=== PATIENT | female | born 1945 | race Caucasian/White ===

== ENCOUNTER → 2016-12-24 | Outpatient (CLI) | payer MEDICARE, MEDICAID ==
[2016-12-24 09:26] LABS: CHLORIDE,CL 104 mmol/L (98-110); SODIUM,NA 139 mmol/L (136-146)
== END ==
LOC: MW.CHRC 08:29
PROVIDERS: ATTEND Family Medicine
DX: I10 Essential (primary) hypertension (principal); E03.9 Hypothyroidism, unspecified; E78.00 Pure hypercholesterolemia, unspecified; E11.9 Type 2 diabetes mellitus without complications; Z23 Encounter for immunization
CPT/HCPCS: 36415; 80053; 80061; 82044; 83036; 84439; 84443; 90662; 99214; G0008

== ENCOUNTER → 2017-01-03 | Outpatient (CLI) | payer MEDICARE, MEDICAID ==
--- NOTE | 2017-01-08 16:19 | ECHO ---
The echocardiogram report can be seen in this patient's EMR in the Reports section. REGIS
== END | disposition home or self-care (01) ==
LOC: MW.US 13:34
PROVIDERS: ATTEND Family Medicine
DX: I38 Endocarditis, valve unspecified (principal); I36.1 Nonrheumatic tricuspid (valve) insufficiency; Z13.6 Encounter for screening for cardiovascular disorders
CPT/HCPCS: 93306

== ENCOUNTER → 2017-01-24 | Outpatient (CLI) | payer MEDICARE, MEDICAID | END | disposition home or self-care (01) | LOC: MW.MNT 11:00 | PROVIDERS: ATTEND Family Medicine | DX: E66.09 Other obesity due to excess calories (principal); Z68.37 Body mass index [BMI] 37.0-37.9, adult; E11.9 Type 2 diabetes mellitus without complications | CPT/HCPCS: 97802 ==

== ENCOUNTER 2017-08-26 09:35 | Day surgery (SDC) | payer MEDICARE, MEDICAID ==
[~2017-08-26 09:35] MED LIST: Lactated Ringers 1,000 ML IV SCH
--- NOTE | 2017-08-26 10:43 | PCM.PREANE ---
Preanesthetic Assessment - Anesthesia/Transfusion/Family Hx Anesthesia History: Prior Anesthesia Without Reaction Other Type of Anesthesia Reaction Comment: hx: some motion sickness, denies any known problem with anesthesia Family History of Anesthesia Reaction: No Transfusion History: No Prior Transfusion(s) - Review of Systems General: No Symptoms Pulmonary: No Symptoms Cardiovascular: No Symptoms Gastrointestinal: No Symptoms Neurological: No Symptoms Other: Reports: None - Physical Assessment NPO Status Date: 08/25/17 Height: 1.52 m Weight: 87.09 kg ASA Class: 2 Mental Status: Alert & Oriented x3 Airway Class: Mallampati = 2 Dentition: Reports: Normal Dentition, Missing Tooth/Teeth ROM/Head Extension: Full Lungs: Clear to Auscultation, Normal Respiratory Effort Cardiovascular: Regular Rate, Regular Rhythm - Lab Values: Laboratory Last Values POC Glucose 119 mg/dL (60-110) H 08/26/17 11:15 - Allergies Allergies/Adverse Reactions: Allergies Allergy/AdvReac Type Severity Reaction Status Date / Time Iodinated Contrast- Oral and Allergy Unknown Seizure Verified 08/21/17 16:39 IV Dye [Iodinated Contrast Media - IV Dye] Penicillins Allergy Swelling Verified 08/21/17 16:39 Sulfa (Sulfonamide Allergy Hives Verified 08/21/17 16:39 Antibiotics) Dust (environmental triggers) Allergy Cough Uncoded 09/12/14 12:05 - Anesthesia Plan Pre-Op Medication Ordered: None - Acknowledgements Anesthesia Type Planned: MAC Pt an Appropriate Candidate for the Planned Anesthesia: Yes Alternatives and Risks of Anesthesia Discussed w Pt/Guardian: Yes Pt/Guardian Understands and Agrees with Anesthesia Plan: Yes Additional Comments: PMH: DM2, gerd, fibromyalgia, thyroid replacement, anxiety, RA, normal stress test and TTE in the last few months. PreAnesthesia Questionnaire Other HEENT History: wears glasses Cardiovascular History: Reports: Heart Murmur, High Cholesterol Other Cardiovascular History: denies chest pain Gastrointestinal History: Reports: Colon Polyp, GERD, Other (See Below) Other Gastrointestinal History: sleeps with HOB elevated because of GERD, cannot sleep on left side- causes pain and coughing because of GERD, unsure if she has hiatal hernia Musculoskeletal History: Reports: Fracture, Fibromyalgia Neurological History: Reports: Other (See Below) Other Neuro History: sciatica Psychiatric History: Reports: Anxiety Endocrine/Metabolic History: Reports: Diabetes, Type II, Hypothyroidism, Obesity /BMI 30+ - Past Surgical History GI Surgical History: Reports: Appendectomy, Cholecystectomy, Colonoscopy, Hernia , Abdominal Other GI Surgeries/Procedures: incisional hernia repair - SUBSTANCE USE Smoking Status *Q: Former Smoker Days Per Week of Alcohol Use: 0 Number of Drinks Per Day: 0 Total Drinks Per Week: 0 Recreational Drug Use History: No - HOME MEDS Home Medications: Home Meds Ezetimibe [Zetia] 10 mg PO DAILY 04/15/14 [History] metFORMIN [Glucophage XR] 500 mg PO BIDM 04/15/14 [History] Levothyroxine [Synthroid] 1 tab PO ACBRK 06/03/14 [History] Furosemide [Lasix] 20 mg PO DAILY PRN 06/07/14 [History] Enalapril [Vasotec] 20 mg PO BRK 07/29/14 [History] Aspirin 81 mg PO DAILY 08/21/17 [History] Lidocaine 5% 1 dose TOP TID PRN 08/21/17 [History] - CURRENT (IN HOUSE) MEDS Current Meds: Current Medications Lactated Ringer's (Ringers, Lactated) 1,000 mls @ 125 mls/hr IV ASDIRECTED [facility] Last Admin: 08/26/17 10:20 Dose: 125 mls/hr
[2017-08-26] MEDS ORDERED: Propofol 200 MG/20 ML SDV ONE ×2 (10:53→12:25)
[2017-08-26] MEDS ORDERED: Lidocaine 2% 5 ML SDV ONE (10:53)
--- NOTE | 2017-08-26 12:57 | PCM.POSTAN ---
POST ANESTHESIA ASSESSMENT - MENTAL STATUS Mental Status: Alert, Oriented - RESPIRATORY Respiratory Status: Respiratory Rate WNL, Airway Patent, O2 Saturation Stable - CARDIOVASCULAR CV Status: Pulse Rate WNL, Blood Pressure Stable - GASTROINTESTINAL GI Status: No Symptoms - PAIN Pain Score: 0 - POST OP HYDRATION Hydration Status: Adequate & Stable
--- NOTE | 2017-08-26 13:09 | PCM.OPNOTE ---
- General Post-Op/Procedure Note Date of Surgery/Procedure: 08/26/17 Operative Procedure(s): colonoscopy Findings: see dict [id number] Pre Op Diagnosis: hx of polyp Post-Op Diagnosis: hemorrhoid Anesthesia Technique: Moderate Sedation Primary Surgeon: Bandar Carey Complications: None Condition: Good Free Text/Narrative:: Intake & Output 08/25/17 08/26/17 08/26/17 22:59 06:59 14:59 Intake Total 1000 Balance 1000
--- NOTE | 2017-08-26 13:42 | PCM48HPAN ---
Post Anesthesia Note - EVALUATION WITHIN 48HRS OF ANESTHETIC Vital Signs in Normal Range: Yes Patient Participated in Evaluation: Yes Respiratory Function Stable: Yes Airway Patent: Yes Cardiovascular Function Stable: Yes Hydration Status Stable: Yes Pain Control Satisfactory: Yes Nausea and Vomiting Control Satisfactory: Yes Mental Status Recovered: Yes
--- NOTE | 2017-08-26 18:43 | OR ---
SURGEON: Bandar Carey MD DATE OF PROCEDURE: 08/26/2017 PREOPERATIVE DIAGNOSIS: History of colon polyp. POSTOPERATIVE DIAGNOSIS: Hemorrhoids. PROCEDURE PERFORMED: Colonoscopy. PROCEDURE in details Colonoscopy: The patient was taken to the endoscopy room. A time out was called, patient identified, and procedure identified. Diprivan was then administrated. Patient went from awake to sleep, hearing doctor talking or door closing is normal. Perineum inspection and digital examination were then performed. A well-lubricated colonoscope was gently inserted through the rectum, advanced past the rectosigmoid junction, the descending colon, splenic flexure, transverse colon, hepatic flexure, ascending colon, arrived to the cecum. Cecum was identified as dictated in the finding. Then the scope was carefully withdrawn while attention was paid to the mucosal surface for any abnormality. Air will be sucked out during the scope withdrawal. At the rectum, retroflexed to examine any rectal diseases, fistula or hemorrhoids. Patient tolerated procedure well. There were no intraoperative complications, and Dr. Carey was present throughout the whole procedure. COMPLICATIONS: None. FINDINGS: 1. The patient is easily sedated with [employer] and Diprivan. The patient is soundly snoring. 2. The patient's colon was rather redundant at the sigmoid, requiring several maneuvers before getting to the cecum. 3. The patient's the bowel prep is average to good. Very little liquid stool. Sigmoid was rather redundant, and cecum was indicated by ileocecal fold and one-to-one indentation. Light immittance is not observed and appendiceal orifice is not observed and cecum can only be observed at a distant. Mucosa was examined. Upon scope pulling out, the patient does not have diverticulosis, polyp, mass, growth, inflammation, stricture, ulceration, bleeding, none of those. The patient has internal hemorrhoids and external hemorrhoids. The patient would benefit from repeat colonoscopy 10 years from today or if clinically indicated otherwise. Thank you for your kind referral. VANESA / DANA /[id number] REGIS
== END 2017-08-26 13:40 | disposition home or self-care (01) ==
LOC: MW.SDS 09:35
PROVIDERS: ATTEND Surgery
DX: Z12.11 Encounter for screening for malignant neoplasm of colon (principal); K64.8 Other hemorrhoids; K64.4 Residual hemorrhoidal skin tags; F32.9 Major depressive disorder, single episode, unspecified; K21.9 Gastro-esophageal reflux disease without esophagitis; Z91.09 Other allergy status, other than to drugs and biological substances; I10 Essential (primary) hypertension; E78.00 Pure hypercholesterolemia, unspecified; E03.9 Hypothyroidism, unspecified; E11.9 Type 2 diabetes mellitus without complications; Z86.010 Personal history of colon polyps; Z88.0 Allergy status to penicillin; Z88.2 Allergy status to sulfonamides; Z91.041 Radiographic dye allergy status; Z79.82 Long term (current) use of aspirin; Z79.899 Other long term (current) drug therapy; Z90.49 Acquired absence of other specified parts of digestive tract; Z98.890 Other specified postprocedural states; Z87.891 Personal history of nicotine dependence
CPT/HCPCS: 82962; G0105; J7120; 00810; J2704

== ENCOUNTER 2019-07-29 12:04 | Emergency (ER) | payer MEDICARE, MEDICAID ==
[2019-07-29] MEDS ORDERED: Sodium Chloride 0.9% 2.5 ML Syringe FLUSH PRN (12:06)
[2019-07-29] MEDS ORDERED: Sodium Chloride 0.9% 10 ML Syringe FLUSH PRN (12:06)
--- NOTE | 2019-07-29 12:23 | EDM.PDOC ---
ED HPI GENERAL MEDICAL PROBLEM - General Chief Complaint: Abdominal Pain Stated Complaint: LEFT ABD PAIN Time Seen by Provider: 07/29/19 12:15 Source of Information: Reports: Patient History Limitations: Reports: No Limitations - History of Present Illness INITIAL COMMENTS - FREE TEXT/NARRATIVE: HISTORY AND PHYSICAL: History of present illness: Patient is a 73-year-old female presents to the ED with complaint of left upper quadrant abdominal pain. She states the pain started 1 week ago and is not improving. She states she got her first it was a pulled muscle because it hurts worse with certain movements. She denies any nausea, vomiting, diarrhea, fevers , chills, chest pain or shortness of breath. His report a cough that she has had this for a while. She has history of gallstone pancreatitis with cholecystectomy 4 years ago. Past medical history significant for type 2 diabetes and hypertension. Past surgical history includes cholecystectomy, umbilical hernia repair with mesh. Review of systems: As per history of present illness and below otherwise all systems reviewed and negative. Past medical history: As per history of present illness and as reviewed below otherwise noncontributory. Surgical history: As per history of present illness and as reviewed below otherwise noncontributory. Social history: No reported history of drug or alcohol abuse. Family history: As per history of present illness and as reviewed below otherwise noncontributory. Physical exam: General: Patient sitting comfortably in no acute distress and nontoxic appearing HEENT: Atraumatic, normocephalic, pupils reactive, negative for conjunctival pallor or scleral icterus, mucous membranes moist, throat clear, neck supple, nontender, trachea midline. No meningeal signs. Lungs: Clear to auscultation, breath sounds equal bilaterally, chest nontender. Heart: S1S2, regular, negative for clicks, rubs, or overt murmur. Abdomen: Left lower and upper quadrant tenderness to palpation. Soft, nondistended. Negative for masses or hepatosplenomegaly. Negative for costovertebral tenderness. No rigidity, rebound, guarding. Pelvis: Stable nontender. Genitourinary: Deferred. Rectal: Deferred. Extremities: Atraumatic, negative for cords or calf pain. Neurovascular unremarkable. Neuro: Awake, alert, oriented. Cranial nerves II through XII unremarkable. Cerebellum unremarkable. Motor and sensory unremarkable throughout. Exam nonfocal. Notes: Diagnostics: CBC, CMP, lipase, troponin, EKG, chest x-ray, UA, CT abdomen/pelvis Therapeutics: 1 L normal saline IV Prescriptions: Impression: Abdominal pain Plan: Follow up with primary care provider Return to ED as needed as discussed Definitive disposition and diagnosis as appropriate pending reevaluation and review of above. LUQ Pain Score (Numeric/FACES): 7 - Related Data Allergies Allergy/AdvReac Type Severity Reaction Status Date / Time Iodinated Contrast Media Allergy Unknown Seizure Verified 07/29/19 12:09 [Iodinated Contrast Media - IV Dye] Penicillins Allergy Swelling Verified 07/29/19 12:09 Sulfa (Sulfonamide Allergy Hives Verified 07/29/19 12:09 Antibiotics) Dust (environmental triggers) Allergy Cough Uncoded 09/12/14 12:05 Home Meds: Home Meds Ezetimibe [Zetia] 10 mg PO DAILY 04/15/14 [History] metFORMIN [Glucophage XR] 500 mg PO BIDM 04/15/14 [History] Levothyroxine [Synthroid] 1 tab PO ACBRK 06/03/14 [History] Furosemide [Lasix] 20 mg PO DAILY PRN 06/07/14 [History] Enalapril [Vasotec] 20 mg PO BRK 07/29/14 [History] Aspirin 81 mg PO DAILY 08/21/17 [History] Past Medical History Other HEENT History: wears glasses Cardiovascular History: Reports: Heart Murmur, High Cholesterol Other Cardiovascular History: denies chest pain Gastrointestinal History: Reports: Colon Polyp, GERD, Other (See Below) Other Gastrointestinal History: sleeps with HOB elevated because of GERD, cannot sleep on left side- causes pain and coughing because of GERD, unsure if she has hiatal hernia Musculoskeletal History: Reports: Fracture, Fibromyalgia Neurological History: Reports: Other (See Below) Other Neuro History: sciatica Psychiatric History: Reports: Anxiety Endocrine/Metabolic History: Reports: Diabetes, Type II, Hypothyroidism, Obesity /BMI 30+ - Past Surgical History GI Surgical History: Reports: Appendectomy, Cholecystectomy, Colonoscopy, Hernia , Abdominal Other GI Surgeries/Procedures: incisional hernia repair ED ROS GENERAL - Review of Systems Review Of Systems: ROS reveals no pertinent complaints other than HPI. ED EXAM, GI/ABD - Physical Exam Exam: See Below (See dictation) Course - Vital Signs Last Recorded V/S: Last Vital Signs Temp 97.3 F 10/10/19 12:11 Pulse 77 07/29/19 12:11 Resp 18 07/29/19 12:11 BP 153/73 H 07/29/19 13:40 Pulse Ox 97 07/29/19 12:11 - Orders/Labs/Meds Orders: Active Orders 24 hr Category Date Time Status EKG Documentation Completion [RC] STAT Care 07/29/19 12:06 Active CULTURE URINE [RM] Stat Lab 07/29/19 13:38 Received Sodium Chloride 0.9% [Saline Flush] Med 07/29/19 12:06 Active 10 ml FLUSH ASDIRECTED PRN Sodium Chloride 0.9% [Saline Flush] Med 07/29/19 12:06 Active 2.5 ml FLUSH ASDIRECTED PRN Saline Lock Insert [OM.PC] Stat Oth 07/29/19 12:06 Ordered Medication Orders Sodium Chloride (Saline Flush) 10 ml FLUSH ASDIRECTED PRN PRN Reason: Keep Vein Open Sodium Chloride (Saline Flush) 2.5 ml FLUSH ASDIRECTED PRN PRN Reason: Keep Vein Open Labs: Laboratory Tests 07/29/19 07/29/19 07/29/19 Range/Units 12:31 12:31 12:31 WBC 8.98 (4.0-11.0) K/uL RBC 4.26 L (4.30-5.90) M/uL Hgb 13.8 (12.0-16.0) g/dL Hct 40.4 (36.0-46.0) % MCV 94.8 (80.0-98.0) fL MCH 32.4 H (27.0-32.0) pg MCHC 34.2 (31.0-37.0) g/dL RDW Std Deviation 42.9 (28.0-62.0) fl RDW Coeff of Izzy 13 (11.0-15.0) % Plt Count 210 (150-400) K/uL MPV 11.50 (7.40-12.00) fL Neut % (Auto) 71.6 (48.0-80.0) % Lymph % (Auto) 19.4 (16.0-40.0) % Union % (Auto) 6.1 (0.0-15.0) % Eos % (Auto) 2.3 (0.0-7.0) % Baso % (Auto) 0.6 (0.0-1.5) % Neut # (Auto) 6.4 H (1.4-5.7) K/uL Lymph # (Auto) 1.7 (0.6-2.4) K/uL Union # (Auto) 0.6 (0.0-0.8) K/uL Eos # (Auto) 0.2 (0.0-0.7) K/uL Baso # (Auto) 0.1 (0.0-0.1) K/uL Nucleated RBC % 0.0 /100WBC Nucleated RBCs # 0 K/uL Sodium 140 (136-145) mmol/L Potassium 4.0 (3.5-5.1) mmol/L Chloride 103 (98-107) mmol/L Carbon Dioxide 25.9 (21.0-32.0) mmol/L BUN 26 H (7.0-18.0) mg/dL Creatinine 1.1 H (0.6-1.0) mg/dL Est Cr Clr Drug Dosing 32.72 mL/min Estimated GFR (MDRD) 48.7 ml/min Glucose 135 H (74-106) mg/dL Calcium 9.5 (8.5-10.1) mg/dL Total Bilirubin 0.3 (0.2-1.0) mg/dL AST 27 (15-37) IU/L ALT 42 (14-63) IU/L Alkaline Phosphatase 81 (46-116) U/L Troponin I < 0.050 (0.000-0.056) ng/mL Total Protein 7.1 (6.4-8.2) g/dL Albumin 4.1 (3.4-5.0) g/dL Globulin 3.0 (2.6-4.0) g/dL Albumin/Globulin Ratio 1.4 (0.9-1.6) Lipase 151 (73-393) U/L Urine Color Urine Appearance Urine pH (5.0-8.0) Ur Specific [place] (1.001-1.035) Urine Protein (NEGATIVE) mg/dL Urine Glucose (UA) (NEGATIVE) mg/dL Urine Ketones (NEGATIVE) mg/dL Urine Occult Blood (NEGATIVE) Urine Nitrite (NEGATIVE) Urine Bilirubin (NEGATIVE) Urine Urobilinogen (<2.0) EU/dL Ur Leukocyte Esterase (NEGATIVE) Urine RBC (0-2/HPF) Urine WBC (0-5/HPF) Ur Epithelial Cells (NONE-FEW) Urine Bacteria (NEGATIVE) 07/29/19 Range/Units 13:38 WBC (4.0-11.0) K/uL RBC (4.30-5.90) M/uL Hgb (12.0-16.0) g/dL Hct (36.0-46.0) % MCV (80.0-98.0) fL MCH (27.0-32.0) pg MCHC (31.0-37.0) g/dL RDW Std Deviation (28.0-62.0) fl RDW Coeff of Izzy (11.0-15.0) % Plt Count (150-400) K/uL MPV (7.40-12.00) fL Neut % (Auto) (48.0-80.0) % Lymph % (Auto) (16.0-40.0) % Union % (Auto) (0.0-15.0) % Eos % (Auto) (0.0-7.0) % Baso % (Auto) (0.0-1.5) % Neut # (Auto) (1.4-5.7) K/uL Lymph # (Auto) (0.6-2.4) K/uL Union # (Auto) (0.0-0.8) K/uL Eos # (Auto) (0.0-0.7) K/uL Baso # (Auto) (0.0-0.1) K/uL Nucleated RBC % /100WBC Nucleated RBCs # K/uL Sodium (136-145) mmol/L Potassium (3.5-5.1) mmol/L Chloride (98-107) mmol/L Carbon Dioxide (21.0-32.0) mmol/L BUN (7.0-18.0) mg/dL Creatinine (0.6-1.0) mg/dL Est Cr Clr Drug Dosing mL/min Estimated GFR (MDRD) ml/min Glucose (74-106) mg/dL Calcium (8.5-10.1) mg/dL Total Bilirubin (0.2-1.0) mg/dL AST (15-37) IU/L ALT (14-63) IU/L Alkaline Phosphatase (46-116) U/L Troponin I (0.000-0.056) ng/mL Total Protein (6.4-8.2) g/dL Albumin (3.4-5.0) g/dL Globulin (2.6-4.0) g/dL Albumin/Globulin Ratio (0.9-1.6) Lipase (73-393) U/L Urine Color YELLOW Urine Appearance CLEAR Urine pH 5.5 (5.0-8.0) Ur Specific [place] 1.010 (1.001-1.035) Urine Protein NEGATIVE (NEGATIVE) mg/dL Urine Glucose (UA) NEGATIVE (NEGATIVE) mg/dL Urine Ketones NEGATIVE (NEGATIVE) mg/dL Urine Occult Blood NEGATIVE (NEGATIVE) Urine Nitrite NEGATIVE (NEGATIVE) Urine Bilirubin NEGATIVE (NEGATIVE) Urine Urobilinogen 0.2 (<2.0) EU/dL Ur Leukocyte Esterase TRACE H (NEGATIVE) Urine RBC 0-2 (0-2/HPF) Urine WBC 0-3 (0-5/HPF) Ur Epithelial Cells OCCASIONAL (NONE-FEW) Urine Bacteria RARE (NEGATIVE) Meds: Medications Generic Name Dose Route Start Last Admin Trade Name Freq PRN Reason Stop Dose Admin Sodium Chloride 10 ml 07/29/19 12:06 Saline Flush FLUSH ASDIRECTED PRN Keep Vein Open Sodium Chloride 2.5 ml 07/29/19 12:06 Saline Flush FLUSH ASDIRECTED PRN Keep Vein Open Discontinued Medications Generic Name Dose Route Start Last Admin Trade Name Freq PRN Reason Stop Dose Admin Sodium Chloride 1,000 mls @ 999 mls/hr 07/29/19 12:26 07/29/19 12:50 Normal Saline IV 07/29/19 13:26 999 mls/hr STAT ONE Administration Departure - Departure Time of Disposition: 14:48 Disposition: Home, Self-Care 01 Condition: Good Clinical Impression: Abdominal pain - Discharge Information Referrals: Lit Enciso MD [Primary Care Provider] - Forms: ED Department Discharge Additional Instructions: The following information is given to patients seen in the emergency department who are being discharged to home. This information is to outline your options for follow-up care. We provide all patients seen in our emergency department with a follow-up referral. The need for follow-up, as well as the timing and circumstances, are variable depending upon the specifics of your emergency department visit. If you don't have a primary care physician on staff, we will provide you with a referral. We always advise you to contact your personal physician following an emergency department visit to inform them of the circumstance of the visit and for follow-up with them and/or the need for any referrals to a consulting specialist. The emergency department will also refer you to a specialist when appropriate. This referral assures that you have the opportunity for follow-up care with a specialist. All of these measure are taken in an effort to provide you with optimal care, which includes your follow-up. Under all circumstances we always encourage you to contact your private physician who remains a resource for coordinating your care. When calling for follow-up care, please make the office aware that this follow-up is from your recent emergency room visit. If for any reason you are refused follow-up, please contact the [facility] Emergency Department at and asked to speak to the emergency department charge nurse. [facility] Primary Care [address] [place] [id number] [place] [address] Follow up with primary care provider Return to ED as needed as discussed - My Orders Last 24 Hours: My Active Orders 07/29/19 12:06 EKG Documentation Completion [RC] STAT Sodium Chloride 0.9% [Saline Flush] 10 ml FLUSH ASDIRECTED PRN Sodium Chloride 0.9% [Saline Flush] 2.5 ml FLUSH ASDIRECTED PRN Saline Lock Insert [OM.PC] Stat 07/29/19 13:38 CULTURE URINE [RM] Stat - Assessment/Plan Last 24 Hours: My Active Orders 07/29/19 12:06 EKG Documentation Completion [RC] STAT Sodium Chloride 0.9% [Saline Flush] 10 ml FLUSH ASDIRECTED PRN Sodium Chloride 0.9% [Saline Flush] 2.5 ml FLUSH ASDIRECTED PRN Saline Lock Insert [OM.PC] Stat 07/29/19 13:38 CULTURE URINE [RM] Stat
[2019-07-29] MEDS ORDERED: Sodium Chloride 0.9% 1,000 ML IV ONE (12:26)
[2019-07-29 13:15] LABS: CARBON DIOXIDE,CO2 25.9 mmol/L (21.0-32.0)
--- NOTE | 2019-07-29 13:15 | CR ---
Chest: Portable view of the chest was obtained. Comparison: Prior chest x-ray of 11/18/17. Heart size and mediastinum are normal. Lungs are clear. Bony structures are grossly intact. Impression: Nothing acute is seen on portable chest x-ray. Diagnostic code #1 MTDD
--- NOTE | 2019-07-29 14:16 | CT ---
CT abdomen and pelvis Technique: Multiple axial sections were obtained from above the dome of the diaphragm inferiorly through the pubic symphysis. Intravenous and oral contrast not utilized. Comparison: No prior CT abdomen or pelvis studies available. Findings: Visualized portions of the lung bases show nothing acute. Noncontrast appearance of the liver and spleen appears within normal limits. Surgical clips are seen from prior cholecystectomy. Adrenal gland on the left side is prominent in size. Right adrenal gland appears normal in size. Pancreas is within normal limits. Aorta shows atherosclerotic calcification which continues into the iliac vessels. No aneurysm is seen. Kidneys show no abnormal calcifications. No ureteral dilatation or ureteral calculi are seen. Aorta shows atherosclerotic change without aneurysm. No retroperitoneal adenopathy or mesenteric abnormalities are seen. Small fat-containing umbilical hernia is noted. No pelvic mass or adenopathy is identified. No free fluid or inflammatory change is seen. Appendix not definitely visualized. Mild increased stool is noted within the right colon and transverse colon. Bone window settings were reviewed which shows disc space narrowing and vacuum phenomena at L5-S1. There is evidence of annular rupture with a small amount of epidural air posterior to the disc at this level. Lesser degenerative change is scattered within other portions of the spine. Impression: 1. Multiple nonacute findings as noted above. Nothing is identified on noncontrast CT study of the abdomen and pelvis to explain the patient's acute abdominal symptoms. 2. Slightly prominent left adrenal gland. This is likely incidental unless patient has known neoplasm. Diagnostic code #3 MTDD
== END 2019-07-29 15:16 | disposition home or self-care (01) ==
LOC: MW.ED 12:04
DX: R10.12 Left upper quadrant pain (principal); E78.00 Pure hypercholesterolemia, unspecified; E11.9 Type 2 diabetes mellitus without complications; E03.9 Hypothyroidism, unspecified; E66.9 Obesity, unspecified; Z68.38 Body mass index [BMI] 38.0-38.9, adult; Z90.49 Acquired absence of other specified parts of digestive tract; Z88.0 Allergy status to penicillin; Z88.2 Allergy status to sulfonamides; Z91.041 Radiographic dye allergy status; Z91.048 Other nonmedicinal substance allergy status; Z79.82 Long term (current) use of aspirin; Z79.84 Long term (current) use of oral hypoglycemic drugs; Z79.899 Other long term (current) drug therapy
CPT/HCPCS: 36415; 71045; 74176; 80053; 81001; 83690; 84484; 85025; 87086; 93005; 96360; 99284; J7040

== ENCOUNTER 2019-10-01 06:33 | Day surgery (SDC) | payer MEDICARE, MEDICAID ==
[2019-10-01] MEDS ORDERED: Lidocaine 2% 5 ML SDV ONE (07:10)
[2019-10-01] MEDS ORDERED: Glycopyrrolate 0.2 MG/ML SDV ONE (07:10)
[2019-10-01] MEDS ORDERED: Propofol 200 MG/20 ML SDV ONE ×2 (07:11)
[2019-10-01] MEDS ORDERED: Midazolam 1 MG/ML 2 ML SDV ONE (07:12)
--- NOTE | 2019-10-01 07:26 | PCM.PREANE ---
Preanesthetic Assessment - Anesthesia/Transfusion/Family Hx Anesthesia History: Prior Anesthesia Without Reaction Other Type of Anesthesia Reaction Comment: hx: some motion sickness, denies any known problem with anesthesia Family History of Anesthesia Reaction: No Transfusion History: No Prior Transfusion(s) - Physical Assessment NPO Status Date: 09/30/19 Height: 5 ft Weight: 89.358 kg ASA Class: 2 Mental Status: Alert & Oriented x3 Airway Class: Mallampati = 2 ROM/Head Extension: Full Lungs: Clear to Auscultation, Normal Respiratory Effort Cardiovascular: Regular Rate, Regular Rhythm - Allergies Allergies/Adverse Reactions: Allergies Allergy/AdvReac Type Severity Reaction Status Date / Time Iodinated Contrast Media Allergy Unknown Seizure Verified 09/27/19 15:14 [Iodinated Contrast Media - IV Dye] Corticosteroids Allergy Headache Verified 09/27/19 15:16 (Glucocorticoids) duloxetine [From Cymbalta] Allergy Fatigue Verified 09/27/19 15:14 Penicillins Allergy Swelling/hi Verified 09/27/19 15:18 ves pregabalin [From Lyrica] Allergy Swelling Verified 09/27/19 15:14 Sulfa (Sulfonamide Allergy Hives Verified 09/27/19 15:14 Antibiotics) tramadol Allergy Abdominal Verified 09/27/19 15:14 Pain Dust (environmental triggers) Allergy Cough Uncoded 09/27/19 15:14 - Blood Blood Available: No - Anesthesia Plan Pre-Op Medication Ordered: None - Acknowledgements Anesthesia Type Planned: General Anesthesia Pt an Appropriate Candidate for the Planned Anesthesia: Yes Alternatives and Risks of Anesthesia Discussed w Pt/Guardian: Yes Pt/Guardian Understands and Agrees with Anesthesia Plan: Yes Additional Comments: PMH: thyroid replacement, anxiety, obesity, chr pain- fibro, dm2- am sugar 130, htn, gerd, RA? on no meds. hx of rheumatic fever- has systolic murmur but normal echo 2 years ago, peripheral neuropathy, cervical and lumbar spine disease PLAN: tiva PreAnesthesia Questionnaire HEENT History: Reports: Other (See Below) Other HEENT History: wears glasses Cardiovascular History: Reports: High Cholesterol, Hypertension Respiratory History: Reports: Bronchitis, Recurrent, Other (See Below) Other Respiratory History: undiagnosed sleep apnea Gastrointestinal History: Reports: Colon Polyp, GERD, Other (See Below) Other Gastrointestinal History: sleeps with HOB elevated because of GERD, cannot sleep on left side- causes pain and coughing because of GERD, unsure if she has hiatal hernia Genitourinary History: Reports: UTI, Recurrent M[employer] EMB[employer]ING [employer] OPERATOR History: Reports: None Musculoskeletal History: Reports: Arthritis, Fibromyalgia, RA Neurological History: Reports: Neuropathy, Peripheral, Other (See Below) Other Neuro History: sciatica Psychiatric History: Reports: Anxiety, Depression, OCD, PTSD Endocrine/Metabolic History: Reports: Diabetes, Type II, Hypothyroidism, Obesity /BMI 30+ Hematologic History: Reports: None Immunologic History: Reports: None Oncologic (Cancer) History: Reports: None Dermatologic History: Reports: None - Infectious Disease History Infectious Disease History: Reports: Chicken Pox, Mumps - Past Surgical History Head Surgeries/Procedures: Reports: None HEENT Surgical History: Reports: None Cardiovascular Surgical History: Reports: None Respiratory Surgical History: Reports: None GI Surgical History: Reports: Appendectomy, Cholecystectomy, Colonoscopy, Hernia , Abdominal Other GI Surgeries/Procedures: incisional hernia repair Female Surgical History: Reports: None Endocrine Surgical History: Reports: None Neurological Surgical History: Reports: None Musculoskeletal Surgical History: Reports: None Oncologic Surgical History: Reports: None Dermatological Surgical History: Reports: None - SUBSTANCE USE Smoking Status *Q: Former Smoker Tobacco Use Within Last Twelve Months: No Recreational Drug Use History: No - HOME MEDS Home Medications: Home Meds Ezetimibe [Zetia] 10 mg PO DAILY 04/15/14 [History] metFORMIN [Glucophage XR] 500 mg PO BIDM 04/15/14 [History] Levothyroxine [Synthroid] 88 mcg PO ACBRK 06/03/14 [History] Furosemide [Lasix] 20 mg PO DAILY PRN 06/07/14 [History] Enalapril [Vasotec] 20 mg PO BRK 07/29/14 [History] Aspirin 81 mg PO DAILY 08/21/17 [History] Acetaminophen with Codeine [Acetaminophen-Cod #3] 1 - 2 tab PO ASDIRECTED PRN [History] Calcium Carbonate [Calcium] 600 mg PO DAILY 09/27/19 [History] Cholecalciferol (Vitamin D3) [Vitamin D3] 5,000 units PO DAILY 09/27/19 [History ] Diclofenac Sodium [Voltaren 1% Gel] 1 applic TOP ASDIRECTED PRN 09/27/19 [ History] Multivitamin [Multivitamins] 1 tab PO DAILY 09/27/19 [History] - CURRENT (IN HOUSE) MEDS Current Meds: Current Medications Lactated Ringer's (Ringers, Lactated) 1,000 mls @ 125 mls/hr IV ASDIRECTED ОЛЕГ Last Admin: 10/01/19 07:21 Dose: 125 mls/hr Discontinued Medications Glycopyrrolate (Robinul) Confirm Administered Dose 0.2 mg .ROUTE .STK-MED ONE Stop: 10/01/19 07:11 Lidocaine (Xylocaine-Mpf 2%) Confirm Administered Dose 5 ml .ROUTE .STK-MED ONE Stop: 10/01/19 07:11 Midazolam HCl (Versed 1 Mg/Ml) Confirm Administered Dose 2 mg .ROUTE .STK-MED ONE Stop: 10/01/19 07:13 Propofol (Diprivan 20 Ml) Confirm Administered Dose 200 mg .ROUTE .STK-MED ONE Stop: 10/01/19 07:12 Propofol (Diprivan 20 Ml) Confirm Administered Dose 200 mg .ROUTE .STK-MED ONE Stop: 10/01/19 07:12
--- NOTE | 2019-10-01 08:38 | PCM.OPNOTE ---
- General Post-Op/Procedure Note Date of Surgery/Procedure: 10/01/19 Operative Procedure(s): egd w bx. colonoscopy w bx Findings: see [id number] Pre Op Diagnosis: change in bowel habits, gerd Post-Op Diagnosis: Same Anesthesia Technique: Moderate Sedation Primary Surgeon: Bandar Carey Pathology: sent Complications: None Condition: Good
--- NOTE | 2019-10-01 08:47 | PCM.POSTAN ---
POST ANESTHESIA ASSESSMENT - MENTAL STATUS Mental Status: Alert, Oriented - VITAL SIGNS Vital Signs: Last Vital Signs Temp 98.2 F 10/01/19 06:45 Pulse 78 10/01/19 08:40 Resp 13 10/01/19 08:40 BP 144/91 H 10/01/19 08:40 Pulse Ox 98 10/01/19 08:40 - RESPIRATORY Respiratory Status: Respiratory Rate WNL, Airway Patent, O2 Saturation Stable - CARDIOVASCULAR CV Status: Pulse Rate WNL, Blood Pressure Stable - GASTROINTESTINAL GI Status: No Symptoms - POST OP HYDRATION Hydration Status: Adequate & Stable
--- NOTE | 2019-10-01 08:48 | PCM48HPAN ---
Post Anesthesia Note - EVALUATION WITHIN 48HRS OF ANESTHETIC Vital Signs in Normal Range: Yes Patient Participated in Evaluation: Yes Respiratory Function Stable: Yes Airway Patent: Yes Cardiovascular Function Stable: Yes Hydration Status Stable: Yes Pain Control Satisfactory: Yes Nausea and Vomiting Control Satisfactory: Yes Mental Status Recovered: Yes Vital Signs: Last Vital Signs Temp 98.2 F 10/01/19 06:45 Pulse 78 10/01/19 08:40 Resp 13 10/01/19 08:40 BP 144/91 H 10/01/19 08:40 Pulse Ox 98 10/01/19 08:40
--- NOTE | 2019-10-01 09:40 | OR ---
SURGEON: Bandar Carey MD DATE OF PROCEDURE: 10/01/2019 PREOPERATIVE DIAGNOSES: Abdominal pain and gastroesophageal reflux disease symptom and change in bowel habit. POSTOPERATIVE DIAGNOSES: Esophagogastroduodenoscopy finding is gastroesophageal reflux disease and colonoscopy finding is colon polyp. PROCEDURES PERFORMED: Esophagogastroduodenoscopy with biopsy and colonoscopy with biopsy. DESCRIPTION OF PROCEDURE: EGD: The patient was taken to the endoscopy room, and with the T[employer] I TEACHER, Diprivan was administered. A well-lubricated EGD scope was gently inserted through the oropharynx, down the esophagus, passing through the gastroesophageal junction, into the stomach. The mucosa was examined upon the passage. Any etiology will be noted. Once in the stomach, we continued to advance to the distal antrum, passed through the pylorus into the second portion of the duodenum. Again, the mucosa was examined for any abnormality and etiology. The scope was then retrieved back to the stomach and then retroflexed to look at the fundus of the stomach. If a biopsy was indicated, we will biopsy the antrum, body, and gastroesophageal junction. The air will be sucked out while the scope is retrieved to reduce the patient's discomfort. The patient tolerated the procedure well. There were no intraoperative complications. Dr. Carey was present through the whole procedure. Prior to surgery, a time-out had been called, the patient identified, procedure identified and antibiotic administered. The patient was taken to the endoscopy room. A time out was called, patient identified, and procedure identified. Diprivan was then administrated. Patient went from awake to sleep, hearing doctor talking or door closing is normal. Perineum inspection and digital examination were then performed. A well- lubricated colonoscope was gently inserted through the rectum, advanced past the rectosigmoid junction, the descending colon, splenic flexure, transverse colon, hepatic flexure, ascending colon, arrived to the cecum. Cecum was identified as dictated in the finding. Then the scope was carefully withdrawn while attention was paid to the mucosal surface for any abnormality. Air will be sucked out during the scope withdrawal. At the rectum, retroflexed to examine any rectal diseases, fistula or hemorrhoids. During mucosal examination, abnormality or polyp was noted; picture taken and biopsy performed. Patient tolerated procedure well. There were no intraoperative complications, and Dr. Carey was present throughout the whole procedure. FINDINGS: EGD findings: 1. The patient is easily sedated with T[employer] I TEACHER and Diprivan, the patient is soundly snoring. 2. Oropharynx and proximal esophagus are free of disease. GE junction at 40 shows very mild salmon-colored change, suggests very mild acid reflux. Stomach rugae are a little bit flattened, consistent with chronic acid over production. Antrum is normal in appearance. Duodenum is grossly normal. Retrieved back to look at the fundus of stomach, there is no hiatal hernia. Biopsy done at body, antrum, and GE junction at 40 and sucked out the gas while scope pulling out. During the whole study, there is no ulcer, blood, bile, or food particle observed. Colonoscopy findings: 1. The patient is easily sedated with T[employer] TEACHER and Diprivan, the patient is soundly snoring. 2. Bowel prep is average to above average, very little liquid stool, no semi- formed stool. 3. Colon is rather straightforward. Cecum indicated by ileocecal fold, one-to- one indentation, appendiceal orifice. Light emittance is not observed. ScopeGuide is pointing south. Mucosa examined upon scope pulling out with some irrigation. The patient has a very small, 2 mm sessile polyp at distance 110 at the cecum, was removed with cold biopsy forceps. Other than that, the patient does not have diverticulosis, inflammation, stricture, ulceration, AV malformation, mass, growth, none of those. The patient has mild external hemorrhoids, mild internal hemorrhoids, and the patient would benefit from a repeat colonoscopy on an as-needed basis or if the clinical situation change. VANESA / DANA /[id number] REGIS
== END 2019-10-01 10:00 | disposition home or self-care (01) ==
LOC: MW.SDS 06:33
PROVIDERS: ATTEND Surgery
DX: D12.0 Benign neoplasm of cecum (principal); K21.0 Gastro-esophageal reflux disease with esophagitis; K29.50 Unspecified chronic gastritis without bleeding; K64.4 Residual hemorrhoidal skin tags; K64.8 Other hemorrhoids; I10 Essential (primary) hypertension; E78.00 Pure hypercholesterolemia, unspecified; E03.9 Hypothyroidism, unspecified; E11.9 Type 2 diabetes mellitus without complications; F32.9 Major depressive disorder, single episode, unspecified; M47.26 Other spondylosis with radiculopathy, lumbar region; M47.22 Other spondylosis with radiculopathy, cervical region; M51.16 Intervertebral disc disorders with radiculopathy, lumbar region; M06.9 Rheumatoid arthritis, unspecified; M48.061 Spinal stenosis, lumbar region without neurogenic claudication; M43.16 Spondylolisthesis, lumbar region; E66.9 Obesity, unspecified; Z91.041 Radiographic dye allergy status; Z88.0 Allergy status to penicillin; Z88.2 Allergy status to sulfonamides; Z88.8 Allergy status to other drugs, medicaments and biological substances; Z88.5 Allergy status to narcotic agent; Z91.048 Other nonmedicinal substance allergy status; Z79.899 Other long term (current) drug therapy; Z79.82 Long term (current) use of aspirin; Z87.891 Personal history of nicotine dependence; Z79.84 Long term (current) use of oral hypoglycemic drugs; Z68.38 Body mass index [BMI] 38.0-38.9, adult
CPT/HCPCS: 43239; 45380; 82962; 88305; 88312; J2001; J2250; J2704; J3490; J7120; 00813

== ENCOUNTER 2020-05-04 11:50 | Emergency (ER) | payer MEDICARE, MEDICAID ==
--- NOTE | 2020-05-04 11:56 | EDM.PDOC ---
ED HPI GENERAL MEDICAL PROBLEM - General Chief Complaint: Upper Extremity Injury/Pain Stated Complaint: FELL HURT SHOULDER Time Seen by Provider: 05/04/20 11:53 Source of Information: Reports: Patient History Limitations: Reports: No Limitations - History of Present Illness INITIAL COMMENTS - FREE TEXT/NARRATIVE: HISTORY AND PHYSICAL: History of present illness: Patient is a 72-year-old female who presents to the emergency room with complaints of right arm pain and right ankle pain post fall. She states she fell on 05/01/2020 for unknown reason. "I think I was just in a hurry and probably fell because of that". She is unsure of how she fell or what she hit when she went to the ground. States her right shoulder/elbow and ankle were sore, worse today. Since the fall she has generally felt unwell. Patient denies any fever, chills, headache, change in vision, syncope or near syncope. Denies any chest pain, back pain, shortness of breath or cough. Denies any abdominal pain, nausea, vomiting, diarrhea, constipation or dysuria. Has not noted any blood in urine or stool. Patient has been eating and drinking appropriately. Review of systems: As per history of present illness and below otherwise all systems reviewed and negative. Past medical history: As per history of present illness and as reviewed below otherwise noncontributory. Surgical history: As per history of present illness and as reviewed below otherwise noncontributory. Social history: See social history for further information Family history: As per history of present illness and as reviewed below otherwise noncontributory. Physical exam: General: Well-developed and well-nourished 74-year-old female. Alert and oriented. Nontoxic-appearing and in no acute distress. HEENT: Atraumatic, normocephalic, pupils equal and reactive bilaterally, negative for conjunctival pallor or scleral icterus, mucous membranes moist, TMs normal bilaterally, throat clear, neck supple, nontender, trachea midline. No drooling or trismus noted. No meningeal signs. No hot potato voice noted. Lungs: Clear to auscultation, breath sounds equal bilaterally, chest nontender. Heart: S1S2, regular rate and rhythm without overt murmur Abdomen: Soft, nondistended, nontender. Negative for masses or hepatosplenomegaly. Negative for costovertebral tenderness. Pelvis: Stable nontender. C-spine/Back: No pinpoint vertebral tenderness upon palpation. No crepitus, step-offs or obvious deformities. Patient does have some cervical neck discomfort to bilateral paraspinous musculature. Patient is ambulatory into the emergency room without difficulty or deficit -uses a 4 pronged cane. Able to rock back on heels and walk on toes. Denies any urinary or fecal incontinence. Denies any numbness, tingling or saddle paresthesia. No concerns of serious infection, fracture or cord compression, or cauda equina syndrome. Deep tendon reflexes brisk bilaterally. Skin: Superficial abrasions noted to bilateral knees. Otherwise skin ins intact, warm, dry. No lesions or rashes noted. Extremities: Pain with palpation of the right shoulder and elbow although has full range of motion. She moves all extremities per self without difficulty or deficits, negative for cords or calf pain. Neurovascular unremarkable. Neuro: Awake, alert, oriented. Cranial nerves II through XII unremarkable. Cerebellum unremarkable. Motor and sensory unremarkable throughout. Exam nonfocal. Notes: Head CT shows mild senescent change otherwise no acute intracranial abnormality. Cervical spine shows diffuse degenerative changes as noted above. Ligamentum nuchal calcification. No acute abnormalities are noted. Chest x-ray shows no acute findings. Degenerative changes noted to the right shoulder, no acute findings. Minimal spur noted of right elbow. Otherwise unremarkable without any acute abnormalities. Ankle x-ray shows a calcaneal spur, old injury noted. No acute findings are seen. Patient does have what appears to be an early UTI, she is symptomatic we will treat with Macrobid. Urine culture has been added. Orthostatic vital signs have somewhat of a change but are not positive for 20 point difference. We discussed signs and symptoms that would prompt her to return to the emergency room. The need for close follow-up with her primary care provider and/or orthopedic provider was reviewed. Medication and s upportive care measures were reviewed and discussed. Voices understanding and is agreeable to plan of care. Denies any further questions or concerns at this time. Diagnostics: CBC, CMP, UA, troponin, EKG, chest x-ray, head/C-spine CT, x-ray right shoulder, x-ray right elbow, x-ray right ankle Therapeutics: Macrobid, ibuprofen Prescription: Macrobid Impression: Fall Right shoulder injury Right ankle injury UTI Plan: 1. Rest, ice, elevate the affected extremity. 2. Increase your oral fluids. Tylenol and/or Ibuprofen as needed for pain management. 3. Follow up with the Orthopedic provider as we discussed. Return to the ED as needed and as discussed. Definitive disposition and diagnosis as appropriate pending reevaluation and review of above. Right arm/ankle Pain Score (Numeric/FACES): 7 - Related Data Allergies Allergy/AdvReac Type Severity Reaction Status Date / Time Iodinated Contrast Media Allergy Unknown Seizure Verified 05/04/20 12:08 [Iodinated Contrast Media - IV Dye] Corticosteroids Allergy Headache Verified 05/04/20 12:08 (Glucocorticoids) duloxetine [From Cymbalta] Allergy Fatigue Verified 05/04/20 12:08 Penicillins Allergy Swelling/hi Verified 05/04/20 12:08 ves pregabalin [From Lyrica] Allergy Swelling Verified 05/04/20 12:08 Sulfa (Sulfonamide Allergy Hives Verified 05/04/20 12:08 Antibiotics) tramadol Allergy Abdominal Verified 05/04/20 12:08 Pain Dust (environmental triggers) Allergy Cough Uncoded 09/27/19 15:14 Home Meds: Home Meds Apap/Codeine 60 - 300 mg PO ASDIRECTED 05/04/20 [History] Desvenlafaxine [Desvenlafaxine ER] 100 mg PO DAILY 05/04/20 [History] Diclofenac Sodium 4 gm TOP ASDIRECTED 05/04/20 [History] Enalapril [Vasotec] 30 mg PO DAILY 05/04/20 [History] Ezetimibe 10 mg PO DAILY 05/04/20 [History] Fluticasone Furoate [Arnuity Ellipta] 50 mcg JAZLYN BID 05/04/20 [History] Levothyroxine 75 mcg PO DAILY 05/04/20 [History] Nitrofurantoin Monohyd/M-Cryst [Macrobid 100 mg Capsule] 100 mg PO BID 5 Days #10 capsule 05/04/20 [Rx] metFORMIN [Glucophage XR] 500 mg PO BID 05/04/20 [History] Past Medical History HEENT History: Reports: Other (See Below) Other HEENT History: wears glasses Cardiovascular History: Reports: High Cholesterol, Hypertension Respiratory History: Reports: Bronchitis, Recurrent, Other (See Below) Other Respiratory History: undiagnosed sleep apnea Gastrointestinal History: Reports: Colon Polyp, GERD, Other (See Below) Other Gastrointestinal History: sleeps with HOB elevated because of GERD, cannot sleep on left side- causes pain and coughing because of GERD, unsure if she has hiatal hernia Genitourinary History: Reports: UTI, Recurrent IN[employer]IENT [employer]ER History: Reports: None Musculoskeletal History: Reports: Arthritis, Fibromyalgia, RA Neurological History: Reports: Neuropathy, Peripheral, Other (See Below) Other Neuro History: sciatica Psychiatric History: Reports: Anxiety, Depression, OCD, PTSD Endocrine/Metabolic History: Reports: Diabetes, Type II, Hypothyroidism, Obesity/BMI 30+ Hematologic History: Reports: None Immunologic History: Reports: None Oncologic (Cancer) History: Reports: None Dermatologic History: Reports: None - Infectious Disease History Infectious Disease History: Reports: Chicken Pox, Mumps - Past Surgical History Head Surgeries/Procedures: Reports: None HEENT Surgical History: Reports: None Cardiovascular Surgical History: Reports: None Respiratory Surgical History: Reports: None GI Surgical History: Reports: Appendectomy, Cholecystectomy, Colonoscopy, Hernia, Abdominal Other GI Surgeries/Procedures: incisional hernia repair Female Surgical History: Reports: None Endocrine Surgical History: Reports: None Neurological Surgical History: Reports: None Musculoskeletal Surgical History: Reports: None Oncologic Surgical History: Reports: None Dermatological Surgical History: Reports: None Social & Family History - Family History Family Medical History: Noncontributory - Caffeine Use Caffeine Use: Reports: Coffee Review of Systems - Review of Systems Review Of Systems: Comprehensive ROS is negative, except as noted in HPI. ED EXAM, GENERAL - Physical Exam Exam: See Below (See dictation) Course - Vital Signs Last Recorded V/S: Last Vital Signs Temp 96 F L 05/04/20 12:12 Pulse 99 05/04/20 12:12 Resp 18 05/04/20 12:12 BP 191/90 H 05/04/20 12:12 Pulse Ox 99 05/04/20 12:12 Orthostatic Blood Pressure [ 178/57 Standing] Orthostatic Blood Pressure [ 192/62 Sitting] Orthostatic Blood Pressure [ 182/66 Supine] - Orders/Labs/Meds Orders: Active Orders 24 hr Category Date Time Status EKG Documentation Completion [RC] STAT Care 05/04/20 12:10 Active Orthostatic Vital Signs [RC] ASDIRECTED Care 05/04/20 12:10 Active CULTURE URINE [RM] Stat Lab 05/04/20 13:00 Received Sodium Chloride 0.9% [Saline Flush] Med 05/04/20 12:10 Active 10 ml FLUSH ASDIRECTED PRN Sodium Chloride 0.9% [Saline Flush] Med 05/04/20 12:10 Active 2.5 ml FLUSH ASDIRECTED PRN DME for Discharge [COMM] Stat Ot 05/04/20 13:48 Ordered Saline Lock Insert [OM.PC] Stat Ot 05/04/20 12:10 Ordered Medication Orders Sodium Chloride (Saline Flush) 10 ml FLUSH ASDIRECTED PRN PRN Reason: Keep Vein Open Sodium Chloride (Saline Flush) 2.5 ml FLUSH ASDIRECTED PRN PRN Reason: Keep Vein Open Labs: Laboratory Tests 05/04/20 05/04/20 05/04/20 Range/Units 12:33 12:33 13:00 WBC 8.29 (4.0-11.0) K/uL RBC 4.27 L (4.30-5.90) M/uL Hgb 13.7 (12.0-16.0) g/dL Hct 39.2 (36.0-46.0) % MCV 91.8 (80.0-98.0) fL MCH 32.1 H (27.0-32.0) pg MCHC 34.9 (31.0-37.0) g/dL RDW Std Deviation 42.6 (28.0-62.0) fl RDW Coeff of Izzy 13 (11.0-15.0) % Plt Count 224 (150-400) K/uL MPV 11.60 (7.40-12.00) fL Neut % (Auto) 66.7 (48.0-80.0) % Lymph % (Auto) 20.7 (16.0-40.0) % Phelps % (Auto) 9.0 (0.0-15.0) % Eos % (Auto) 3.0 (0.0-7.0) % Baso % (Auto) 0.6 (0.0-1.5) % Neut # (Auto) 5.5 (1.4-5.7) K/uL Lymph # (Auto) 1.7 (0.6-2.4) K/uL Phelps # (Auto) 0.8 (0.0-0.8) K/uL Eos # (Auto) 0.3 (0.0-0.7) K/uL Baso # (Auto) 0.1 (0.0-0.1) K/uL Nucleated RBC % 0.0 /100WBC Nucleated RBCs # 0 K/uL Sodium 138 (136-145) mmol/L Potassium 4.0 (3.5-5.1) mmol/L Chloride 102 (98-107) mmol/L Carbon Dioxide 24.5 (21.0-32.0) mmol/L BUN 17 (7.0-18.0) mg/dL Creatinine 0.9 (0.6-1.0) mg/dL Est Cr Clr Drug Dosing 39.39 mL/min Estimated GFR (MDRD) > 60.0 ml/min Glucose 118 H (74-106) mg/dL Calcium 9.4 (8.5-10.1) mg/dL Total Bilirubin 0.5 (0.2-1.0) mg/dL AST 19 (15-37) IU/L ALT 34 (14-63) IU/L Alkaline Phosphatase 71 (46-116) U/L Troponin I < 0.050 (0.000-0.056) ng/mL Total Protein 7.6 (6.4-8.2) g/dL Albumin 4.3 (3.4-5.0) g/dL Globulin 3.3 (2.6-4.0) g/dL Albumin/Globulin Ratio 1.3 (0.9-1.6) Urine Color YELLOW Urine Appearance CLEAR Urine pH 6.0 (5.0-8.0) Ur Specific Daphne 1.010 (1.001-1.035) Urine Protein NEGATIVE (NEGATIVE) mg/dL Urine Glucose (UA) NEGATIVE (NEGATIVE) mg/dL Urine Ketones NEGATIVE (NEGATIVE) mg/dL Urine Occult Blood TRACE-INTACT H (NEGATIVE) Urine Nitrite NEGATIVE (NEGATIVE) Urine Bilirubin NEGATIVE (NEGATIVE) Urine Urobilinogen 0.2 (<2.0) EU/dL Ur Leukocyte Esterase SMALL H (NEGATIVE) Urine RBC 0-1 (0-2/HPF) Urine WBC 3-4 (0-5/HPF) Ur Epithelial Cells RARE (NONE-FEW) Urine Bacteria RARE (NEGATIVE) Meds: Medications Generic Name Dose Route Start Last Admin Trade Name Freq PRN Reason Stop Dose Admin Sodium Chloride 10 ml 05/04/20 12:10 Saline Flush FLUSH ASDIRECTED PRN Keep Vein Open Sodium Chloride 2.5 ml 05/04/20 12:10 Saline Flush FLUSH ASDIRECTED PRN Keep Vein Open Discontinued Medications Generic Name Dose Route Start Last Admin Trade Name Alek PRN Reason Stop Dose Admin Ibuprofen 400 mg 05/04/20 13:37 Motrin PO 05/04/20 13:38 ONETIME ONE Nitrofurantoin Macrocrystals 100 mg 05/04/20 13:37 Macrobid PO 05/04/20 13:38 ONETIME ONE Departure - Departure Time of Disposition: 13:53 Disposition: Home, Self-Care 01 Clinical Impression: Fall Qualifiers: Encounter type: initial encounter Qualified Code(s): W19.XXXA - Unspecified fall, initial encounter Right shoulder injury Qualifiers: Encounter type: initial encounter Qualified Code(s): S49.91XA - Unspecified injury of right shoulder and upper arm, initial encounter Right ankle injury Qualifiers: Encounter type: initial encounter Qualified Code(s): S99.911A - Unspecified injury of right ankle, initial encounter UTI (urinary tract infection) Qualifiers: Urinary tract infection type: site unspecified Hematuria presence: without hematuria Qualified Code(s): N39.0 - Urinary tract infection, site not specified - Discharge Information Prescriptions: Nitrofurantoin Monohyd/M-Cryst [Macrobid 100 mg Capsule] 100 mg PO BID 5 Days #10 capsule Instructions: Urinary Tract Infection, Adult, [id number] Referrals: Lit Enciso MD [Primary Care Provider] - Forms: ED Department Discharge Additional Instructions: The following information is given to patients seen in the emergency department who are being discharged to home. This information is to outline your options for follow-up care. We provide all patients seen in our emergency department with a follow-up referral. The need for follow-up, as well as the timing and circumstances, are variable depending upon the specifics of your emergency department visit. If you don't have a primary care physician on staff, we will provide you with a referral. We always advise you to contact your personal physician following an emergency department visit to inform them of the circumstance of the visit and for follow-up with them and/or the need for any referrals to a consulting specialist. The emergency department will also refer you to a specialist when appropriate. This referral assures that you have the opportunity for follow-up care with a specialist. All of these measure are taken in an effort to provide you with optimal care, which includes your follow-up. Under all circumstances we always encourage you to contact your private physician who remains a resource for coordinating your care. When calling for follow-up care, please make the office aware that this follow-up is from your recent emergency room visit. If for any reason you are refused follow-up, please contact the [facility] Emergency Department at and asked to speak to the emergency department charge nurse. [facility] [address] [place] [id number] [facility] [address] [place] [id number] Thank you for choosing the [facility] emergency department in [place] for your medical needs today. It was a pleasure caring for you. You were seen in the emergency department for fall, right upper/lower extremity injury, and UTI. 1. Rest, ice, elevate the affected extremity. 2. Increase your oral fluids. Tylenol and/or Ibuprofen as needed for pain management. 3. Follow up with the Orthopedic provider as we discussed. Return to the ED as needed and as discussed. Sepsis Event Note (ED) - Focused Exam Vital Signs: Vital Signs Temp Pulse Resp BP Pulse Ox 05/04/20 12:12 96 F L 99 18 191/90 H 99 - My Orders Last 24 Hours: My Active Orders 05/04/20 12:10 EKG Documentation Completion [RC] STAT Orthostatic Vital Signs [RC] ASDIRECTED Sodium Chloride 0.9% [Saline Flush] 10 ml FLUSH ASDIRECTED PRN Sodium Chloride 0.9% [Saline Flush] 2.5 ml FLUSH ASDIRECTED PRN Saline Lock Insert [OM.PC] Stat 05/04/20 13:00 CULTURE URINE [RM] Stat 05/04/20 13:48 DME for Discharge [COMM] Stat - Assessment/Plan Last 24 Hours: My Active Orders 05/04/20 12:10 EKG Documentation Completion [RC] STAT Orthostatic Vital Signs [RC] ASDIRECTED Sodium Chloride 0.9% [Saline Flush] 10 ml FLUSH ASDIRECTED PRN Sodium Chloride 0.9% [Saline Flush] 2.5 ml FLUSH ASDIRECTED PRN Saline Lock Insert [OM.PC] Stat 05/04/20 13:00 CULTURE URINE [RM] Stat 05/04/20 13:48 DME for Discharge [COMM] Stat
[2020-05-04] MEDS ORDERED: Sodium Chloride 0.9% 10 ML Syringe FLUSH PRN (12:10)
[2020-05-04] MEDS ORDERED: Sodium Chloride 0.9% 2.5 ML Syringe FLUSH PRN (12:10)
--- NOTE | 2020-05-04 12:59 | CT ---
Head CT Technique: Multiple axial sections through the brain were obtained. Intravenous contrast was not utilized. Comparison: No prior intracranial imaging is available. Findings: Ventricles along with basal cisterns and sulci over the convexities are mildly prominent. Minimal areas of diminished density noted within the periventricular white matter most likely representing small vessel ischemic demyelination change. No other abnormal parenchymal densities are seen. No evidence of intracranial hemorrhage. No midline shift or mass effect is seen. No acute calvarial finding is seen. Visualized mastoid sinuses and paranasal sinuses show nothing acute. Impression: 1. Mild senescent change. 2. No acute intracranial abnormality is appreciated. Diagnostic code #2 This report was dictated in MDT
--- NOTE | 2020-05-04 13:04 | CT ---
CT cervical spine Technique: Multiple axial sections were obtained from above the C1 inferiorly to the top of T4. Reconstructed sagittal and coronal images were obtained. Comparison: Prior cervical spine MRI of 03/17/20. Findings: Degenerative change is noted between the dens and anterior arch of C1. Severe disc space narrowing is noted at C6-C7 with anterior osteophytes. Mild disc space narrowing is noted at C5-C6 with anterior osteophytes. Lesser anterior osteophytes are scattered within other portions of the spine. Scattered degenerative apophyseal change throughout cervical spine and upper thoracic spine. Ligamentum nuchal calcification is seen. No fracture is identified. No abnormal subluxation is seen. Severe left-sided neural foraminal stenosis is noted at C3-C4. Mild right-sided neural foraminal stenosis is noted C4-C5 with moderate left-sided neural foraminal stenosis at C4-C5. Moderate bilateral neural foraminal stenosis is noted at C5-C6. Mild to moderate bilateral neural foraminal stenosis is noted at C6-C7. Other neural foramina appear to be fairly well patent. No bony central canal stenosis is seen. Fairly severe degenerative change is noted within the right temporomandibular joint. Moderate degenerative change within the left temporomandibular joint. Impression: 1. Diffuse degenerative change as noted above. Ligamentum nuchal calcification. 2. No acute abnormality is appreciated. Diagnostic code #3 This report was dictated in MDT
[2020-05-04 13:10] LABS: BLOOD UREA NITROGEN,BUN 17 mg/dL (7.0-18.0); CARBON DIOXIDE,CO2 24.5 mmol/L (21.0-32.0); CHLORIDE,CL 102 mmol/L (98-107); GLUCOSE RANDOM 118 mg/dL (74-106); SODIUM,NA 138 mmol/L (136-145)
--- NOTE | 2020-05-04 13:27 | CR ---
Right shoulder: 3 views of the right shoulder were obtained. Inferior hook is seen off the acromion process. Mild degenerative change within the acromioclavicular joint is seen with mild inferior spurring. Glenohumeral joint is normal. No acute fracture or dislocation is seen. Impression: 1. Degenerative change as noted above. 2. Nothing acute is seen. Diagnostic code #2 This report was dictated in MDT
--- NOTE | 2020-05-04 13:28 | CR ---
Right elbow: 3 views of the right elbow were obtained. Minimal spur is noted at the lateral epicondyles compatible with minimal spurring at the attachment of the common extensor tendon mechanism. No acute fracture, dislocation or other bony abnormality is seen. No joint effusion is seen. Impression: 1. Minimal spur as described above. 2. Right elbow study is otherwise unremarkable without acute abnormality. Diagnostic code #2 This report was dictated in MDT
--- NOTE | 2020-05-04 13:29 | CR ---
Right ankle: 3 views of the right ankle were obtained. Comparison: No prior ankle study. Plantar spur is seen. Spur is noted at the attachment of the Achilles tendon to the calcaneus. Calcifications are noted within the anterior castillo. Ankle mortise is symmetric. Bony density is seen off the inferior medial malleolus compatible with old injury. Impression: 1. Calcaneal spurs. 2. Old injury off the medial ankle. 3. Nothing acute is seen. Diagnostic code #2 This report was dictated in MDT
--- NOTE | 2020-05-04 13:30 | CR ---
Chest: PA view of the chest was obtained. Comparison: Prior chest x-ray of 07/29/19. Heart size at the upper limits of normal. Upper mediastinum is normal. Lungs are clear. No discrete acute bony abnormality is appreciated. Impression: 1. Nothing acute is appreciated on PA chest x-ray. Diagnostic code #1 This report was dictated in MDT
[2020-05-04] MEDS ORDERED: Nitrofurantoin Monohydrate/Macrocrystalline 100 MG Cap PO ONE (13:37)
[2020-05-04] MEDS ORDERED: Ibuprofen 400 MG Tab PO ONE (13:37)
== END 2020-05-04 14:16 | disposition home or self-care (01) ==
LOC: MW.ED 11:50
DX: S80.212A Abrasion, left knee, initial encounter (principal); S80.211A Abrasion, right knee, initial encounter; S99.911A Unspecified injury of right ankle, initial encounter; S49.91XA Unspecified injury of right shoulder and upper arm, initial encounter; N39.0 Urinary tract infection, site not specified; I10 Essential (primary) hypertension; E03.9 Hypothyroidism, unspecified; E66.9 Obesity, unspecified; F41.9 Anxiety disorder, unspecified; F32.9 Major depressive disorder, single episode, unspecified; E11.42 Type 2 diabetes mellitus with diabetic polyneuropathy; Z91.041 Radiographic dye allergy status; Z88.8 Allergy status to other drugs, medicaments and biological substances; Z88.0 Allergy status to penicillin; Z88.2 Allergy status to sulfonamides; Z88.5 Allergy status to narcotic agent; Z79.899 Other long term (current) drug therapy; Z79.84 Long term (current) use of oral hypoglycemic drugs; W19.XXXA Unspecified fall, initial encounter
CPT/HCPCS: 36415; 70450; 71045; 72125; 73030; 73080; 73610; 80053; 81001; 84484; 85025; 87086; 87088; 87186; 93005; 99284; A9270

== ENCOUNTER 2021-10-02 15:20 | Emergency (ER) | payer MEDICARE, MEDICAID ==
[2021-10-02 17:11] LABS: CORONAVIRUS COVID-19 NAA NEGATIVE (NEGATIVE); INFLUENZA A NAA NEGATIVE (NEGATIVE); INFLUENZA B NAA NEGATIVE (NEGATIVE)
[2021-10-02] MEDS ORDERED: Albuterol 8 GM Inhaler INH ONE (17:29)
--- NOTE | 2021-10-02 17:32 | EDM.PDOC ---
ED HPI GENERAL MEDICAL PROBLEM - General Chief Complaint: Respiratory Problem Stated Complaint: SHORTNESS OF BREATH Time Seen by Provider: 10/02/21 17:20 Source of Information: Reports: Patient - History of Present Illness INITIAL COMMENTS - FREE TEXT/NARRATIVE: 75-year-old female history of hypertension diabetes and intermittent use of an hellers for reactive airway disease presents complaining of shortness of breath cough and body aches. Patient not vaccinated against Covid. Patient denies any unilateral leg swelling. No recent travel or injury or cancer or surgery. Patient denies any chest pain. No exacerbating relieving factors of these moderate symptoms general Pain Score (Numeric/FACES): 7 - Related Data Allergies Allergy/AdvReac Type Severity Reaction Status Date / Time Iodinated Contrast Media Allergy Unknown Seizure Verified 10/02/21 16:15 [Iodinated Contrast Media - IV Dye] Corticosteroids Allergy Headache Verified 10/02/21 16:15 (Glucocorticoids) duloxetine [From Cymbalta] Allergy Fatigue Verified 10/02/21 16:15 Penicillins Allergy Swelling/hi Verified 10/02/21 16:15 ves pregabalin [From Lyrica] Allergy Swelling Verified 10/02/21 16:15 Sulfa (Sulfonamide Allergy Hives Verified 10/02/21 16:15 Antibiotics) tramadol Allergy Abdominal Verified 10/02/21 16:15 Pain Dust (environmental triggers) Allergy Cough Uncoded 10/02/21 16:15 Home Meds: Home Meds Apap/Codeine 60 - 300 mg PO ASDIRECTED 05/04/20 [History] Diclofenac Sodium 4 gm TOP ASDIRECTED 05/04/20 [History] Enalapril [Vasotec] 30 mg PO DAILY 05/04/20 [History] Ezetimibe 10 mg PO DAILY 05/04/20 [History] Levothyroxine 75 mcg PO DAILY 05/04/20 [History] predniSONE [Prednisone] 50 mg PO DAILY #5 tablet 10/02/21 [Rx] Past Medical History HEENT History: Reports: Impaired Vision Other HEENT History: wears glasses Cardiovascular History: Reports: High Cholesterol, Hypertension Respiratory History: Reports: Bronchitis, Recurrent, Sleep Apnea Other Respiratory History: undiagnosed sleep apnea Gastrointestinal History: Reports: Colon Polyp, GERD Other Gastrointestinal History: sleeps with HOB elevated because of GERD, cannot sleep on left side- causes pain and coughing because of GERD, unsure if she has hiatal hernia Genitourinary History: Reports: UTI, Recurrent PLATE GLASS GRINDER History: Reports: None Musculoskeletal History: Reports: Arthritis, Fibromyalgia, RA Neurological History: Reports: Neuropathy, Peripheral, Other (See Below) Other Neuro History: sciatica Psychiatric History: Reports: Anxiety, Depression, OCD, PTSD Endocrine/Metabolic History: Reports: Diabetes, Type II, Hypothyroidism, Obesity/BMI 30+ Hematologic History: Reports: None Immunologic History: Reports: None Oncologic (Cancer) History: Reports: None Dermatologic History: Reports: None - Infectious Disease History Infectious Disease History: Reports: Chicken Pox, Mumps - Past Surgical History Head Surgeries/Procedures: Reports: None HEENT Surgical History: Reports: Eye Surgery Cardiovascular Surgical History: Reports: None Respiratory Surgical History: Reports: None GI Surgical History: Reports: Appendectomy, Cholecystectomy, Colonoscopy, Hernia, Abdominal Other GI Surgeries/Procedures: incisional hernia repair Female Surgical History: Reports: None Endocrine Surgical History: Reports: None Neurological Surgical History: Reports: None Musculoskeletal Surgical History: Reports: Other (See Below) Other Musculoskeletal Surgeries/Procedures:: bone spur removed from neck Oncologic Surgical History: Reports: None Dermatological Surgical History: Reports: None Social & Family History - Family History Family Medical History: No Pertinent Family History - Tobacco Use Tobacco Use Status *Q: Never Tobacco User - Caffeine Use Caffeine Use: Reports: Coffee, Tea - Recreational Drug Use Recreational Drug Use: No ED ROS GENERAL - Review of Systems Review Of Systems: Comprehensive ROS is negative, except as noted in HPI. ED EXAM, GENERAL - Physical Exam Exam: See Below Free Text/Narrative:: CONSTITUTIONAL: well appearing in no acute distress. large amount of cough. pt blowing nose SKIN: Warm, dry, and intact without rash HENT: Normocephalic, atraumatic, PULMONARY: Decreased air movement bilaterally. Slight scant wheeze. No rales CARDIOVASCULAR: regular rate, No murmur, rubs, or gallops GASTROINTESTINAL: soft, nondistended, nontender NEUROLOGIC: normal speech, II-XII intact. light touch/5/5 power equal and symmetric in upper and lower extremities without deficit MUSCULOSKELETAL: no gross deformities, atraumatic. No lower extremity swelling PSYCHIATRIC: normal mood and affect #1 Interpretation Time: 17:49 EKG Interpretation Comments: EKG: NSR, nonspecific ST/T changes, Rate -86 Course - Vital Signs Text/Narrative:: Differential diagnosis: Viral disease, Covid, pneumonia, PE, ACS, other Patient presents as outlined above. She is having large amount of cough and runny nose. Swabs are negative for influenza. Chest x-ray is negative for any focal consolidation. Patient does have wheeze on exam and she has used inhalers in the past. She was given an inhaler here and she states she feels better from a shortness of breath standpoint as well as a coughing standpoint. Repeat oxygen level 95%. Patient relistened to and is still wheezing but improved air movement. Patient was also given steroids and she does not have a reaction to prednisone which she is taken in the past. Patient has albuterol inhaler now with her, prednisone will be given with return precautions and PCP follow-up Last Recorded V/S: Last Vital Signs Temp 36.8 C 10/02/21 17:20 Pulse 87 10/02/21 17:20 Resp 18 10/02/21 17:20 BP 161/66 H 10/02/21 17:20 Pulse Ox 97 10/02/21 17:20 - Orders/Labs/Meds Orders: Active Orders 24 hr Category Date Time Status Chest 2V [CR] Stat Exams 10/02/21 17:30 Taken Labs: Laboratory Tests 10/02/21 10/02/21 10/02/21 Range/Units 16:14 17:52 17:52 WBC 7.39 (4.0-11.0) K/uL RBC 4.46 (4.30-5.90) M/uL Hgb 14.6 (12.0-16.0) g/dL Hct 40.9 (36.0-46.0) % MCV 91.7 (80.0-98.0) fL MCH 32.7 H (27.0-32.0) pg MCHC 35.7 (31.0-37.0) g/dL RDW Std Deviation 43.7 (28.0-62.0) fl RDW Coeff of Izzy 13 (11.0-15.0) % Plt Count 180 (150-400) K/uL MPV 12.00 (7.40-12.00) fL Neut % (Auto) 69.7 (48.0-80.0) % Lymph % (Auto) 14.2 L (16.0-40.0) % [place] % (Auto) 13.5 (0.0-15.0) % Eos % (Auto) 2.2 (0.0-7.0) % Baso % (Auto) 0.4 (0.0-1.5) % Neut # (Auto) 5.2 (1.4-5.7) K/uL Lymph # (Auto) 1.1 (0.6-2.4) K/uL [place] # (Auto) 1.0 H (0.0-0.8) K/uL Eos # (Auto) 0.2 (0.0-0.7) K/uL Baso # (Auto) 0.0 (0.0-0.1) K/uL Nucleated RBC % 0.0 /100WBC Nucleated RBCs # 0 K/uL Sodium 133 L (136-145) mmol/L Potassium 4.3 (3.5-5.1) mmol/L Chloride 98 (98-107) mmol/L Carbon Dioxide 28.5 (21.0-32.0) mmol/L BUN 16 (7.0-18.0) mg/dL Creatinine 0.9 (0.6-1.0) mg/dL Est Cr Clr Drug Dosing 38.79 mL/min Estimated GFR (MDRD) > 60.0 ml/min Glucose 151 H (74-106) mg/dL Calcium 9.4 (8.5-10.1) mg/dL Total Bilirubin 0.8 (0.2-1.0) mg/dL AST 17 (15-37) IU/L ALT 30 (14-63) IU/L Alkaline Phosphatase 79 (46-116) U/L Troponin I < 0.050 (0.000-0.056) ng/mL Total Protein 7.6 (6.4-8.2) g/dL Albumin 4.0 (3.4-5.0) g/dL Globulin 3.6 (2.6-4.0) g/dL Albumin/Globulin Ratio 1.1 (0.9-1.6) Influenza Type A RNA NEGATIVE (NEGATIVE) Influenza Type B RNA NEGATIVE (NEGATIVE) SARS-CoV-2 RNA (KIRSTEN) NEGATIVE (NEGATIVE) Meds: Medications Discontinued Medications Generic Name Dose Route Start Last Admin Trade Name Freq PRN Reason Stop Dose Admin Albuterol 2.5 gm 10/02/21 17:29 10/02/21 17:54 Albuterol 8 Gm Inhaler INH 10/02/21 17:30 2.5 gm ONETIME ONE Administration Prednisone 60 mg 10/02/21 17:34 10/02/21 17:54 Prednisone 20 Mg Tab PO 10/02/21 17:35 60 mg ONETIME ONE Administration Departure - Departure Time of Disposition: 18:50 Disposition: DC/Tfer W/I Hosp To Swing 61 Condition: Good Clinical Impression: Viral respiratory illness, Reactive airway disease with acute exacerbation - Discharge Information Instructions: Acute Bronchitis, Adult, [id number] Forms: ED Department Discharge Additional Instructions: Use the inhaler that was given to here today 2 puffs four times a day for the next 2 days then as needed thereafter. Take prednisone as prescribed. Next dose is tomorrow. Return for any shortness of breath or change or worsening condition or lack of improvement The following information is given to patients seen in the emergency department who are being discharged to home. This information is to outline your options for follow-up care. We provide all patients seen in our emergency department with a follow-up referral. The need for follow-up, as well as the timing and circumstances, are variable depending upon the specifics of your emergency department visit. If you don't have a primary care physician on staff, we will provide you with a referral. We always advise you to contact your personal physician following an emergency department visit to inform them of the circumstance of the visit and for follow-up with them and/or the need for any referrals to a consulting specialist. The emergency department will also refer you to a specialist when appropriate. This referral assures that you have the opportunity for follow-up care with a specialist. All of these measure are taken in an effort to provide you with optimal care, which includes your follow-up. Primary care clinics in the area: [facility] [address] [place] [address] [facility] [address] [place] [address] Under all circumstances we always encourage you to contact your private physician who remains a resource for coordinating your care. When calling for follow-up care, please make the office aware that this follow-up is from your recent emergency room visit. If for any reason you are refused follow-up, please contact the [facility] Emergency Department at and asked to speak to the emergency department charge nurse. Sepsis Event Note (ED) - Focused Exam Vital Signs: Vital Signs Temp Pulse Resp BP BP Pulse Ox 10/02/21 17:20 36.8 C 87 18 161/66 H 97 10/02/21 16:08 36.9 C 89 20 171/70 H 92 L - My Orders Last 24 Hours: My Active Orders 10/02/21 17:30 Chest 2V [CR] Stat - Assessment/Plan Last 24 Hours: My Active Orders 10/02/21 17:30 Chest 2V [CR] Stat
[2021-10-02] MEDS ORDERED: predniSONE 20 MG Tab PO ONE (17:34)
[2021-10-02 18:32] LABS: BLOOD UREA NITROGEN,BUN 16 mg/dL (7.0-18.0); CARBON DIOXIDE,CO2 28.5 mmol/L (21.0-32.0); CHLORIDE,CL 98 mmol/L (98-107); GLUCOSE RANDOM 151 mg/dL (74-106); POTASSIUM,K 4.3 mmol/L (3.5-5.1); SODIUM,NA 133 mmol/L (136-145)
--- NOTE | 2021-10-02 18:49 | CR ---
CHEST 2 VIEWS INDICATION : Cough. IMPRESSION: Normal heart size and vascular pattern. Lungs are clear. No pneumothorax or pleural effusion. Dictated by Brady Zuñiga MD @ 10/02/2021 6:46:51 PM (Electronically Signed)
== END 2021-10-02 19:15 | disposition home or self-care (01) ==
LOC: MW.ED 15:20
DX: J45.901 Unspecified asthma with (acute) exacerbation (principal); B34.9 Viral infection, unspecified; E78.00 Pure hypercholesterolemia, unspecified; I10 Essential (primary) hypertension; K21.9 Gastro-esophageal reflux disease without esophagitis; E11.9 Type 2 diabetes mellitus without complications; E03.9 Hypothyroidism, unspecified; E66.9 Obesity, unspecified; Z68.35 Body mass index [BMI] 35.0-35.9, adult; Z91.041 Radiographic dye allergy status; Z88.0 Allergy status to penicillin; Z88.8 Allergy status to other drugs, medicaments and biological substances; Z88.2 Allergy status to sulfonamides; Z88.5 Allergy status to narcotic agent; Z91.048 Other nonmedicinal substance allergy status; Z20.822 Contact with and (suspected) exposure to COVID-19
CPT/HCPCS: 0240U; 36415; 71046; 80053; 84484; 85025; 93005; 99285; A9270

== ENCOUNTER 2022-05-10 14:17 | Emergency (ER) | payer MEDICARE, MEDICAID ==
[2022-05-10] MEDS ORDERED: Sodium Chloride 0.9% 10 ML Syringe FLUSH PRN (14:59)
[2022-05-10] MEDS ORDERED: Sodium Chloride 0.9% 2.5 ML Syringe FLUSH PRN (14:59)
[2022-05-10 15:50] LABS: CARBON DIOXIDE,CO2 27.9 mmol/L (21.0-32.0)
[2022-05-10] MEDS ORDERED: Sodium Chloride 0.9% 1,000 ML IV ONE (17:29)
[2022-05-10] MEDS ORDERED: Iopamidol 755 MG/ML 500 ML Multipack Bottle IVPUSH STA (17:52)
== END 2022-05-10 19:39 | disposition home or self-care (01) ==
LOC: MW.ED 14:17
DX: N93.9 Abnormal uterine and vaginal bleeding, unspecified (principal); E78.00 Pure hypercholesterolemia, unspecified; I10 Essential (primary) hypertension; K21.9 Gastro-esophageal reflux disease without esophagitis; Z79.899 Other long term (current) drug therapy; Z20.822 Contact with and (suspected) exposure to COVID-19
CPT/HCPCS: 36415; 74177; 76856; 80053; 81001; 83605; 85025; 85610; 85730; 86850; 86900; 86901; 96360; 99284; J3490; J7030; Q9967; U0002

== ENCOUNTER 2022-05-23 07:49 | Day surgery (SDC) | payer MEDICARE, MEDICAID ==
[~2022-05-23 07:49] MED LIST changes: +Albuterol 0.083% 2.5 MG/3 ML Neb Soln NEB PRN; +HYDROmorphone 1 MG/ML Syringe IVPUSH PRN; -Lactated Ringers 1,000 ML IV SCH; +Metoclopramide 10 MG/2 ML SDV IVPUSH PRN; +Morphine 4 MG/ML VIAL IVPUSH PRN; +Naloxone 0.4 MG/ML SDV IVPUSH PRN; +Ondansetron 4 MG/2 ML SDV IVPUSH PRN; +fentaNYL 50 MCG/ML SDV IVPUSH PRN
[2022-05-23] MEDS ORDERED: Ondansetron 4 MG/2 ML SDV ONE (08:10)
[2022-05-23] MEDS ORDERED: Lidocaine 2% 5 ML SDV ONE (08:10)
[2022-05-23] MEDS ORDERED: fentaNYL 100 MCG/2 ML SDV ONE (08:11)
[2022-05-23] MEDS ORDERED: Propofol 200 MG/20 ML SDV ONE (08:11)
[2022-05-23] MEDS ORDERED: Famotidine 20 MG/2 ML SDV ONE (08:23)
[2022-05-23] MEDS ORDERED: Ketorolac 30 MG/ML SDV ONE (09:26)
== END 2022-05-23 11:15 | disposition home or self-care (01) ==
LOC: MW.SDS 07:49
PROVIDERS: ATTEND Obstetrics & Gynecology
DX: N84.0 Polyp of corpus uteri (principal); F41.9 Anxiety disorder, unspecified; E11.42 Type 2 diabetes mellitus with diabetic polyneuropathy; K21.9 Gastro-esophageal reflux disease without esophagitis; E78.00 Pure hypercholesterolemia, unspecified; I10 Essential (primary) hypertension; E03.9 Hypothyroidism, unspecified; E66.9 Obesity, unspecified; M06.9 Rheumatoid arthritis, unspecified; Z88.0 Allergy status to penicillin; Z88.2 Allergy status to sulfonamides; Z91.041 Radiographic dye allergy status; Z79.899 Other long term (current) drug therapy; Z88.8 Allergy status to other drugs, medicaments and biological substances; Z90.49 Acquired absence of other specified parts of digestive tract; Z98.890 Other specified postprocedural states; Z87.891 Personal history of nicotine dependence
CPT/HCPCS: 58558; 82947; J0131; J1885; J2405; J2704; J3010; J3490; 00952; 99100

== ENCOUNTER 2022-06-13 09:06 | Day surgery (SDC) | payer MEDICARE, MEDICAID ==
[~2022-06-13 09:06] MED LIST changes: +Morphine 2 MG/ML SYRINGE IVPUSH PRN; -Morphine 4 MG/ML VIAL IVPUSH PRN; +Scopolamine 1.5 MG Transdermal Patch ONE; +Sodium Chloride 0.9% 10 ML Syringe FLUSH PRN; +Sodium Chloride 0.9% 2.5 ML Syringe FLUSH PRN; +Sodium Chloride 0.9% 20 ML SDV IV PRN; +ceFAZolin 2 GM in Premix Bag 1 BAG IV ONE
[2022-06-13] MEDS: Lactated Ringers 1,000 ML IV SCH ×2 (09:27→13:52)
[2022-06-13] MEDS ORDERED: fentaNYL 250 MCG/5 ML SDV ONE ×2 (10:23→11:18)
[2022-06-13] MEDS ORDERED: Propofol 200 MG/20 ML SDV ONE (10:23)
[2022-06-13] MEDS ORDERED: Fluorescein 5 ML Vial ONE (12:12)
[2022-06-13] MEDS ORDERED: Acetaminophen 1,000 MG in Premix Bag 1 BAG IV ONE (13:08)
[2022-06-13] MEDS ORDERED: Acetaminophen/oxyCODONE 325-5 MG Tab PO PRN ×2 (13:46)
[2022-06-13] MEDS ORDERED: Ketorolac 30 MG/ML SDV IVPUSH PRN (13:46)
[2022-06-13] MEDS ORDERED: Ketorolac 30 MG/ML SDV IVPUSH ONE (13:46)
[2022-06-13] MEDS ORDERED: Ondansetron 4 MG/2 ML SDV IVPUSH PRN (13:46)
[2022-06-13] MEDS ORDERED: Promethazine 25 MG/ML SDV IM PRN (13:46)
[2022-06-13] MEDS ORDERED: Morphine 4 MG/ML VIAL IVPUSH PRN (13:46)
[2022-06-14 06:16] LABS: CARBON DIOXIDE,CO2 28.7 mmol/L (21.0-32.0); POTASSIUM,K 3.9 mmol/L (3.5-5.1)
[2022-06-14] MEDS ORDERED: Ondansetron 4 MG/2 ML SDV ONE (07:23)
== END 2022-06-14 10:30 | disposition home or self-care (01) ==
LOC: MW.SDS 09:06 → MW.MS 12:48 → MW.SDS 06-14 10:30
PROVIDERS: ATTEND Obstetrics & Gynecology
DX: D25.1 Intramural leiomyoma of uterus (principal); D25.2 Subserosal leiomyoma of uterus; D50.0 Iron deficiency anemia secondary to blood loss (chronic); N88.8 Other specified noninflammatory disorders of cervix uteri; N72 Inflammatory disease of cervix uteri; N80.0 Endometriosis of uterus; N83.311 Acquired atrophy of right ovary; N83.312 Acquired atrophy of left ovary; N73.6 Female pelvic peritoneal adhesions (postinfective); N83.8 Other noninflammatory disorders of ovary, fallopian tube and broad ligament; I10 Essential (primary) hypertension; E11.9 Type 2 diabetes mellitus without complications; E03.9 Hypothyroidism, unspecified; E66.9 Obesity, unspecified; F41.9 Anxiety disorder, unspecified; F32.A Depression, unspecified; K21.9 Gastro-esophageal reflux disease without esophagitis; Z79.899 Other long term (current) drug therapy; Z91.041 Radiographic dye allergy status; Z88.0 Allergy status to penicillin; Z88.2 Allergy status to sulfonamides; Z88.8 Allergy status to other drugs, medicaments and biological substances; Z87.891 Personal history of nicotine dependence; Z79.890 Hormone replacement therapy; Z68.38 Body mass index [BMI] 38.0-38.9, adult
CPT/HCPCS: 36415; 58571; 80048; 82947; 85025; A9270; J0131; J0690; J1885; J2405; J2704; J3010; J7030; J7120

== ENCOUNTER 2025-02-02 18:30 | Emergency (ER) | payer OTHER, MEDICARE, MEDICAID ==
[2025-02-02] MEDS ORDERED: Sodium Chloride 0.9% 2.5 ML Syringe FLUSH PRN (18:35)
[2025-02-02] MEDS ORDERED: Sodium Chloride 0.9% 10 ML Syringe FLUSH PRN (18:35)
[2025-02-02] MEDS ORDERED: Sodium Chloride 0.9% 20 ML SDV IV PRN (18:35)
[2025-02-02] MEDS ORDERED: Naloxone 0.4 MG/ML SDV IVPUSH PRN (18:42)
[2025-02-02 18:47] LABS: BASOPHILS ABSOLUTE AUTO 0.05 K/uL (0.00-0.20); BASOPHILS PERCENT AUTO 0.6 % (0.0-1.0); EOSINOPHILS ABSOLUTE AUTO 0.24 K/uL (0.00-0.45); HEMATOCRIT 38.2 % (37.0-47.0); HEMOGLOBIN 13.5 g/dL (12.0-16.0); IMMATURE GRAN ABSOLUTE AUTO 0.04 K/uL (0.00-0.05); IMMATURE GRAN PERCENT AUTO 0.5 % (0.0-0.4); LYMPHOCYTES ABSOLUTE AUTO 2.34 K/uL (1.00-4.80); LYMPHOCYTES PERCENT AUTO 29.3 % (24.0-44.0); MEAN CORPUSCULAR HEMOGLOBIN 32.5 pg (28.0-32.0); MEAN CORPUSCULAR HGB CONC 35.3 g/dL (32.0-36.0); MEAN CORPUSCULAR VOLUME 91.8 fL (83.0-99.0); MEAN PLATELET VOLUME 11.9 fL (9.4-12.3); MONOCYTES ABSOLUTE AUTO 0.63 K/uL (0.00-0.80); MONOCYTES PERCENT AUTO 7.9 % (0.0-8.0); NEUTROPHILS PERCENT AUTO 58.7 % (41.0-71.0); PLATELET COUNT,PLT 192 K/uL (150-400); RED BLOOD CELL COUNT 4.16 M/uL (4.10-5.30)
[2025-02-02 18:55] LABS: INR 1.01 (0.86-1.11); PTT,PARTIAL THROMBOPLSTIN TIME 22.8 SEC (23.9-30.7)
[2025-02-02 19:14] LABS: A/G RATIO 1.2 (0.9-1.6); ALANINE AMINOTRANSFERASE,ALT 21 IU/L (14-63); ALBUMIN 3.7 g/dL (3.4-5.0); ALKALINE PHOSPHATASE 61 U/L (46-116); ASPARTATE AMNIOTRANSFERASE,AST 20 IU/L (15-37); BILIRUBIN TOTAL 0.3 mg/dL (0.2-1.0); BLOOD UREA NITROGEN,BUN 24 mg/dL (7.0-18.0); CALCIUM 9.4 mg/dL (8.5-10.1); CARBON DIOXIDE,CO2 29.8 mmol/L (21.0-32.0); CHLORIDE,CL 106 mmol/L (98-107); CREATINE KINASE,CK 106 U/L (26-308); CREATININE 0.9 mg/dL (0.6-1.0); ESTIMATED GFR 65 mL/min (>60); GLUCOSE RANDOM 107 mg/dL (74-106); LIPASE 59 U/L (16-77); POTASSIUM,K 4.2 mmol/L (3.5-5.1); PROTEIN TOTAL,TP 6.8 g/dL (6.4-8.2); SODIUM,NA 144 mmol/L (136-145)
[2025-02-02] MEDS: Diphtheria,Pertussis(Acell),Tetanus Vaccine 0.5 ML Syringe IM ONE (19:23)
[2025-02-02] MEDS: fentaNYL 50 MCG/ML SDV IVPUSH ONE (19:23)
[2025-02-02] MEDS: Sodium Chloride 0.9% 1,000 ML IV ONE (19:23)
[2025-02-02 20:05] LABS: LACTIC ACID 0.7 mmol/L (0.4-2.0)
[2025-02-02 21:23] LABS: APPEARANCE,URINE CLEAR; BILIRUBIN,URINE NEGATIVE (NEGATIVE); COLOR,URINE YELLOW; GLUCOSE,URINE NEGATIVE (NEGATIVE); KETONES,URINE NEGATIVE (NEGATIVE); LEUKOCYTE ESTERASE,URINE NEGATIVE (NEGATIVE); NITRITE,URINE NEGATIVE (NEGATIVE); OCCULT BLOOD,URINE NEGATIVE (NEGATIVE); PROTEIN,URINE NEGATIVE (NEGATIVE); UROBILINOGEN,URINE 0.2 EU/dL (<2.0)
[2025-02-02] MEDS: Enalapril 5 MG Tab PO ONE (21:24)
== END 2025-02-02 23:17 | disposition home or self-care (01) ==
LOC: MW.ED 18:30
DX: M25.551 Pain in right hip (principal); M79.601 Pain in right arm; M79.604 Pain in right leg; M79.605 Pain in left leg; I10 Essential (primary) hypertension; K21.9 Gastro-esophageal reflux disease without esophagitis; Z79.899 Other long term (current) drug therapy; Z23 Encounter for immunization; V43.52XA Car driver injured in collision with other type car in traffic accident, initial encounter; Y92.410 Unspecified street and highway as the place of occurrence of the external cause
CPT/HCPCS: 36415; 70450; 71045; 71250; 72125; 72128; 72131; 72170; 73030; 73060; 73090; 73120; 73552; 73590; 73620; 74176; 80053; 81003; 82550; 83605; 83690; 83735; 84484; 85025; 85610; 85730; 90471; 90715; 93005; 96361; 96374; 99285; A9270; J3010; J7030; 99283

== ENCOUNTER 2025-05-11 14:38 | Emergency (ER) | payer MEDICARE, MEDICAID ==
[2025-05-11] MEDS: Orphenadrine 60 MG/2 ML Inj IM ONE (15:17)
[2025-05-11 16:00] LABS: GLUCOSE,URINE NEGATIVE (NEGATIVE); OCCULT BLOOD,URINE MODERATE (NEGATIVE)
[2025-05-11 16:09] LABS: APPEARANCE,URINE CLOUDY
[2025-05-11 16:10] LABS: EPITHELIAL CELLS,URINE RARE (NONE-FEW)
[2025-05-11] MEDS: Ketorolac 30 MG/ML SDV IVPUSH ONE (16:44)
[2025-05-11 17:22] LABS: BASOPHILS ABSOLUTE AUTO 0.04 K/uL (0.00-0.20); BASOPHILS PERCENT AUTO 0.4 % (0.0-1.0); EOSINOPHILS ABSOLUTE AUTO 0.12 K/uL (0.00-0.45); EOSINOPHILS PERCENT AUTO 1.2 % (0.0-6.0); IMMATURE GRAN ABSOLUTE AUTO 0.03 K/uL (0.00-0.05); IMMATURE GRAN PERCENT AUTO 0.3 % (0.0-0.4); LYMPHOCYTES ABSOLUTE AUTO 1.39 K/uL (1.00-4.80); LYMPHOCYTES PERCENT AUTO 13.5 % (24.0-44.0); MEAN PLATELET VOLUME 12.9 fL (9.4-12.3); MONOCYTES ABSOLUTE AUTO 0.68 K/uL (0.00-0.80); MONOCYTES PERCENT AUTO 6.6 % (0.0-8.0); NEUTROPHILS ABSOLUTE AUTO 8.07 K/uL (1.80-7.70); NEUTROPHILS PERCENT AUTO 78.0 % (41.0-71.0); NRBC ABSOLUTE 0.00 K/uL (0.00-0.02); NRBC PERCENT 0.0 /100WBC (0.0-0.2); PLATELET COUNT,PLT 208 K/uL (150-400); RED BLOOD CELL COUNT 4.12 M/uL (4.10-5.30); WHITE BLOOD CELL COUNT,WBC 10.33 K/uL (3.9-11.3)
[2025-05-11] MEDS: Ondansetron 4 MG/2 ML SDV IVPUSH ONE (17:27)
[2025-05-11 17:32] LABS: A/G RATIO 1.3 (0.9-1.6); ALANINE AMINOTRANSFERASE,ALT 29 IU/L (14-63); ASPARTATE AMNIOTRANSFERASE,AST 19 IU/L (15-37); BILIRUBIN TOTAL 0.5 mg/dL (0.2-1.0); BLOOD UREA NITROGEN,BUN 27 mg/dL (7.0-18.0); CARBON DIOXIDE,CO2 27.2 mmol/L (21.0-32.0); CHLORIDE,CL 104 mmol/L (98-107); CREATININE 1.1 mg/dL (0.6-1.0); GLUCOSE RANDOM 123 mg/dL (74-106); POTASSIUM,K 4.1 mmol/L (3.5-5.1); PROTEIN TOTAL,TP 7.1 g/dL (6.4-8.2); SODIUM,NA 142 mmol/L (136-145)
[2025-05-11 17:40] LABS: ESTIMATED GFR 51 mL/min (>60)
[2025-05-11] MEDS: Nitrofurantoin Monohydrate/Macrocrystalline 100 MG Cap PO ONE (18:37)
== END 2025-05-11 18:45 | disposition home or self-care (01) ==
LOC: MW.ED 14:38
DX: M54.41 Lumbago with sciatica, right side (principal); N39.0 Urinary tract infection, site not specified; M62.838 Other muscle spasm; M54.2 Cervicalgia; G89.29 Other chronic pain; I10 Essential (primary) hypertension; E11.9 Type 2 diabetes mellitus without complications; E03.9 Hypothyroidism, unspecified; Z88.0 Allergy status to penicillin; Z88.2 Allergy status to sulfonamides; Z88.8 Allergy status to other drugs, medicaments and biological substances; Z91.041 Radiographic dye allergy status; Z91.048 Other nonmedicinal substance allergy status; Z79.51 Long term (current) use of inhaled steroids; Z79.890 Hormone replacement therapy; Z79.899 Other long term (current) drug therapy
CPT/HCPCS: 36415; 72131; 74176; 80053; 81001; 85025; 87086; 87088; 87186; 96372; 96374; 96375; 99284; A9270; J1885; J2270; J2360; J2405; J8540; 99283